=== PATIENT | male | born 2000 | race Caucasian/White ===

== ENCOUNTER 2024-02-15 13:05 | Outpatient (AMB) | payer OTHER, SELFPAY ==
--- NOTE | 2024-02-15 13:10 | AM.OFFWIN_ITS ---
Intake Vital Signs 02/15/24 13:19 Weight 182 lb 4 oz BP 110/64 Blood Pressure Location Lt brachial Position Sitting Respiration 16 Pulse 43 L Pulse Source Pulse Oximeter Temp 98.2 F Temp Source Oral Pulse Oximetry (%) 99 Oxygen Delivery Method Room Air Intake Visit Reasons: sinus infection/ headache Intake Note: patient here c/o sinus infection. started having flu like symptoms a week ago it all started with nausea vomiting and diarrhea and now he has headache and congestion. 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 His symptoms started 6 days ago and progressively worsened. He initially had flu-like symptoms with associated fever, chills, body aches which completely resolved. He notes positive sick contacts. He has not done any viral testing. [facility] Social History Patient Tobacco Use Status: Never used Tobacco Review of Systems Const Details: Const Denies chills, Denies fatigue, Denies fever(s), Denies headache(s) and Denies weakness ENT Reports as per HPI Resp Denies cough, Denies dyspnea, Denies wheezing and Denies other (shortness of breath) Cardio Denies chest pain, Denies lightheadedness, Denies dyspnea and Denies other (palpitations) Neuro Denies dizziness, Denies headache(s), Denies numbness, Denies tingling and Denies weakness Endo Denies fatigue Aller/Immun Denies wheezing Physical Exam Vital Signs: Last Vital Signs Temp 98.2 F 02/15/24 13:19 Pulse 43 L 02/15/24 13:19 Resp 16 02/15/24 13:19 BP 110/64 02/15/24 13:19 Pulse Ox 99 02/15/24 13:19 Oxygen Delivery Method Room Air 02/15/24 13:19 Const Other: Const General: well developed; No acute distress Nutritional Appearance: well nourished Orientation/consciousness: patient oriented x3 HEENT Head is normocephalic Bilateral ear canal and TM are normal Nasal turbinates and oropharynx are pink and moist Frontal sinus tenderness to palpation No auricular or cervical lymphadenopathy Eyes General: appearance normal, both eyes and all related structures Pupils: Equal, round and reactive pupils present EOM: EOMs intact bilaterally Resp Effort & Inspection: normal respiratory effort Auscultation: clear to auscultation bilaterally Cardio Rate: regular rate Rhythm: regular rhythm Heart sounds: S1 normal heart sound present, S2 normal heart sound present, no gallops, no murmurs and no rubs Bruits: no abdominal aortic bruits and no carotid bruits Neuro General: patient oriented x3 and gait normal, no focal neuro deficit Cranial nerves: Yes Equal, round and reactive pupils present Psych Affect: normal affect Assessment & Plan Assessment & Plan (1) Sinus infection: Code(s): J32.9 - Chronic sinusitis, unspecified Plan: Frontal sinus tenderness to palpation Likely viral infection with superimposed bacterial infection Z-Alysia ordered. Advised to take as prescribed May take Tylenol ibuprofen for pain and discomfort Adequate hydration and rest encouraged May continue nasal saline rinse Nasal swab collected and will be sent for COVID, flu, RSV Work note given Follow-up with worsening or new symptoms Verbalized understanding and agreed with the treatment plan Orders: Orders SARS-CoV2/FLU/RSV Today J32.9 - Chronic sinusitis, unspecified Medications: New azithromycin (Zithromax TRI-ALYSIA) 500 mg PO DAILY 6 days 6 tabs 0RF Coding Level of Care Code Est Pt Level 3 (41624) Diagnoses Sinus infection J32.9
[2024-02-15 13:19] VITALS: BP 110/64; PULSE 43; RESP 16; TEMP 36.8; O2SAT 99
== END 2024-02-15 13:42 | disposition home or self-care (01) ==
PROVIDERS: Visit Provider Nurse Practitioner Family
DX: J32.9 Chronic sinusitis, unspecified (principal)

== ENCOUNTER 2024-02-15 13:05 | Outpatient (REF) | payer OTHER, SELFPAY ==
[2024-02-15 18:51] LABS: Influenza A PCR NEGATIVE (Negative); Influenza B PCR NEGATIVE (Negative); Resp Syncy Virus RNA Qual PCR NEGATIVE (Negative); SARS COV2 PCR INHOUSE NEGATIVE (Negative)
== END 2024-02-15 13:06 | disposition home or self-care (01) ==
LOC: HO.LAB 13:05
PROVIDERS: Visit Provider Nurse Practitioner Family
DX: J32.9 Chronic sinusitis, unspecified (principal)
CPT/HCPCS: 0241U; 99212

== ENCOUNTER 2024-06-20 08:18 | Outpatient (AMB) | payer OTHER, SELFPAY ==
--- NOTE | 2024-06-20 08:19 | MHC.OFFWIV ---
Intake Vital Signs 06/20/24 08:22 Height 6 ft 1 in Weight 190 lb 4 oz BMI 25.1 BP 134/76 Blood Pressure Location Lt brachial Position Sitting Respiration 13 Pulse 85 Pulse Source Pulse Oximeter Temp 99.5 F Temp Source Oral Pulse Oximetry (%) 95 Oxygen Delivery Method Room Air Intake Visit Reasons: fever/cough Intake Note: Patient complaining of fever, coughing, sob, and bodyaches x 4days Patient Tobacco Use Status: Never used Tobacco Allergies No Known Allergies Allergy (Verified 06/20/24 08:31) Medication List - Last Reconciled 06/20/24 by MARTHA Wynn No Known Home Meds Do you need a note to return to daycare/school/sports/work: Yes HPI HPI Comments History of Present Illness Details 24-year-old male here today at the walk-in clinic with complaints of flu-like symptoms that started 4 days ago. Symptoms include cough, fever, body ache, runny nose. Using [id number] TheraFlu with limited effect. Did not receive the flu vaccine this year. Denies any asthma history. Exam: Awake alert NAD, mildly ill-appearing Sclera and conjunctiva clear bilat Nares clear nasal drainage, turbinates within normal limits, no sinus tenderness with palpation bilat TM intact and clear bilat MMM, pharynx WNL RRR LS CTAB, dry cough without distress noted during exam Plan: Treat with Tamiflu and prednisone. Take as directed. We will prescribe Tessalon as needed for cough. Advised that if this is not helpful for his cough that he can stop using this and use lscd-ylx-rdivwbu cough remedies. Advised not to use the Tessalon with the fzmn-yye-nphvwgz cough medications. 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 Educated on reasons to return to the office it was worsening of symptoms. This note is constructed using voice recognition software. While every effort has been made to ensure accuracy in retail wireless associate, still errors may have been included Sometimes, these errors may affect the content or meaning of the given sentence . PFSH Social History Patient Tobacco Use Status: Never used Tobacco Physical Exam Vital Signs: Last Vital Signs Temp 99.5 F 06/20/24 08:22 Pulse 85 06/20/24 08:22 Resp 13 06/20/24 08:22 BP 134/76 06/20/24 08:22 Pulse Ox 95 06/20/24 08:22 Oxygen Delivery Method Simple Mask 06/20/24 08:22 BMI result Body Mass Index 25.1 Assessment & Plan Assessment & Plan (1) Influenza: Code(s): J11.1 - Influenza due to unidentified influenza virus with other respiratory manifestations Plan . Medications: New oseltamivir (Tamiflu) 75 mg PO Q12H 5 days 10 caps 0RF benzonatate 100 mg PO TID 10 days PRN 30 caps 1RF cough prednisone 10 mg PO DAILY 3 tabs 0RF Patient Instructions: Influenza (flu) is an infection in the lungs and breathing passages. It is caused by the influenza virus. There are different strains, or types, of the flu virus from year to year. Unlike the common cold, the flu comes on suddenly and the symptoms can be more severe. These symptoms include a cough, congestion, fever, chills, fatigue, aches, and pains. These symptoms may last for a few weeks. Although the flu can make you feel very sick, it usually doesn't cause serious health problems. Home treatment is usually all you need for flu symptoms. But your doctor may prescribe antiviral medicine to prevent other health problems, such as pneumonia, from developing. The risk of other health problems from the flu is highest for young children (under 5), older adults (over 65), women, people with long-term health conditions, people who live in nursing homes or long-term care centres, and indigenous peoples. How can you care for yourself at home? Get plenty of rest. Drink plenty of fluids. If you have to limit fluids because of a health problem, talk with your doctor before you increase the amount of fluids you drink. Take an kill-prx-nynewih pain medicine if needed, such as acetaminophen (Tylenol), ibuprofen (Advil, Motrin), or naproxen (Aleve), to relieve fever, headache, and muscle aches. Read and follow all instructions on the label. No one younger than 18 should take aspirin. It has been linked to Vidya syndrome, a serious illness. Take any prescribed medicine exactly as directed. Do not smoke. Smoking can make the flu worse. If you need help quitting, talk to your doctor about stop-smoking programs and medicines. These can increase your chances of quitting for good. If the skin around your nose and lips becomes sore, put some petroleum jelly (such as Vaseline) on the area. To ease coughing: Suck on cough drops or plain, hard candy. Try an gcig-dsu-zeuvzpw cough or cold medicine. Read and follow all instructions on the label. Raise your head at night with an extra pillow. This may help you rest if coughing keeps you awake. To avoid spreading the flu Wash your hands regularly, and keep your hands away from your face. Stay home from school, work, and other public places until you are feeling better and your fever has been gone for at least 24 hours. The fever needs to have gone away on its own without the help of medicine. Ask people living with you to talk to their doctors about preventing the flu. They may get antiviral medicine to keep from getting the flu from you. To prevent the flu in the future, get the flu vaccine every fall. Encourage people living with you to get the vaccine. Cover your mouth when you cough or sneeze. If you can, cough or sneeze into the bend of your elbow, not your hands. When should you call for help? Call 911 anytime you think you may need emergency care. For example, call if: You have severe trouble breathing. You have a seizure. Call your doctor or nurse advice line now or seek immediate medical care if: You have trouble breathing. You have a fever with a stiff neck or a severe headache. You have pain or pressure in your chest or belly. You have a fever or cough that returns after getting better. You feel very sleepy, dizzy, or confused. You are not urinating. You have severe muscle pain. You have severe weakness, or you are unsteady. You have medical conditions that are getting worse Watch closely for changes in your health, and be sure to contact your doctor or nurse advice line if: You do not get better as expected. You are having a problem with your medicine. Coding Level of Care Code Est Pt Level 3 (33340) Diagnoses Influenza J11.1
[2024-06-20 08:22] VITALS: BP 134/76; PULSE 85; RESP 13; TEMP 37.5; O2SAT 95; BMI 25.1
== END 2024-06-20 08:38 | disposition home or self-care (01) ==
LOC: HO.HMCWIW 08:18
PROVIDERS: Visit Provider Nurse Practitioner Family
DX: J11.1 Influenza due to unidentified influenza virus with other respiratory manifestations (principal)

== ENCOUNTER → 2024-06-20 08:18 | Outpatient (BNVA) | payer OTHER, SELFPAY | PROVIDERS: Visit Provider Nurse Practitioner Family | DX: J11.1 Influenza due to unidentified influenza virus with other respiratory manifestations (principal) | CPT/HCPCS: 99212 ==